=== PATIENT | female | born 1955 | race African-American/Black ===

== ENCOUNTER 2017-11-09 15:22 | Emergency (ER) | payer OTHER ==
[2017-11-09] MEDS ORDERED: Acetaminophen 500 MG TAB ONE (15:51)
--- NOTE | 2017-11-09 16:03 | RAD ---
CHEST PA AND LATERAL: HISTORY: A 62-year-old female with a history of a cough and congestion. COMPARISON: 02/15/2017 FINDINGS: Heart size is normal. Stable increased bronchovascular markings bilaterally. Mild thoracolumbar sco liotic changes. No confluent pneumonia, overt edema, or pleural effusion. IMPRESSION: 1. No acute intrathoracic disease. 2. Atherosclerosis of the aorta. POS: [facility]
== END 2017-11-09 16:50 | disposition home or self-care (01) ==
LOC: ERS 15:22
DX: J44.1 Chronic obstructive pulmonary disease with (acute) exacerbation (principal); J20.9 Acute bronchitis, unspecified; J44.0 Chronic obstructive pulmonary disease with (acute) lower respiratory infection; I11.0 Hypertensive heart disease with heart failure; I50.9 Heart failure, unspecified; F17.210 Nicotine dependence, cigarettes, uncomplicated; Z79.82 Long term (current) use of aspirin; Z79.899 Other long term (current) drug therapy
CPT/HCPCS: 71046; 93005

== ENCOUNTER 2018-06-28 03:43 | Emergency (ER) | payer MEDICARE, MEDICAID ==
[2018-06-28 04:34] LABS: #Basophils 0.1 thou/uL (0.0-0.2); #Eosinphils 0.1 thou/uL (0.0-0.7); #Lymphocytes 1.6 thou/uL (1.20-3.40); #Monocytes 0.3 thou/uL (0.11-0.59); #Neutrophils 4.5 thou/uL (1.40-6.50); %Basophils 1.1 % (0.0-1.0); %Lymphocytes 23.9 % (21.0-51.0); %Monocytes 4.9 % (0.0-10.0); %Neutrophils 69.1 % (42.0-75.0); Hemoglobin 14.8 g/dL (12.0-16.0); Mean Corpuscular HGB CONC 32.5 g/dL (32.0-36.0); Mean Corpuscular Hemoglobin 33.9 pg (27.0-31.0); Mean Platelet Volume 7.4 fL (7.4-10.4); Platelet Count 176 thou/uL (130-400); RBC Distribution Width 11.6 % (11.5-14.5); Red Blood Cell (RBC) Count 4.37 mill/uL (4.20-5.40); White Blood Cell (WBC) Count 6.5 thou/uL (4.8-10.8)
[2018-06-28 04:42] LABS: ALT (SGPT) 19 U/L (8-55); AST (SGOT) 16 U/L (5-34); Alkaline Phosphatase 158 U/L (40-150); Anion Gap 13 mmol/L (10-20); BUN (Urea Nitrogen) 10 mg/dL (9.8-20.1); Bilirubin, Total 1.1 mg/dL (0.2-1.2); Calc. Creatinine Clearance 0 mL/min (70-130); Calcium 9.8 mg/dL (7.8-10.44); Carbon Dioxide 26 mmol/L (23-31); Chloride 105 mmol/L (98-107); Estimated GFR-MDRD 85; Globulin 2.8 g/dL (2.4-3.5); Glucose 107 mg/dL (80-115); Lipase 51 U/L (8-78); Potassium 3.2 mmol/L (3.5-5.1); Protein, Total 6.8 g/dL (6.0-8.3); Sodium 141 mmol/L (136-145)
--- NOTE | 2018-06-28 08:34 | RAD ---
2 VIEWS CHEST: Date: 06/28/18 PROVIDED CLINICAL HISTORY: Chest pain. FINDINGS: Comparison with 11/09/17. Cardiac and mediastinal silhouette is within normal limits. Lungs appear clear. Stable minimal blunti ng of the posterior costophrenic angles. No evidence for pneumothorax or large effusion. Vascular douglas cification involves the aortic arch. IMPRESSION: Stable radiographic appearance of the chest. POS: [facility]
== END 2018-06-28 06:16 | disposition home or self-care (01) ==
LOC: ERS 03:43
DX: R07.2 Precordial pain (principal); J44.9 Chronic obstructive pulmonary disease, unspecified; F17.210 Nicotine dependence, cigarettes, uncomplicated; I25.2 Old myocardial infarction; I11.0 Hypertensive heart disease with heart failure; I50.9 Heart failure, unspecified
CPT/HCPCS: 36415; 71046; 80053; 83690; 84484; 85025; 93005

== ENCOUNTER 2018-12-07 13:37 | Outpatient (CLI) | payer MEDICARE, MEDICAID ==
--- NOTE | 2018-12-07 15:45 | MMO ---
Bilateral MAMMO Bilat Screen [facility]. CLINICAL HISTORY: Patient is 63 years old and is seen for screening. The patient has no family history of breast cancer. The patient has no personal history of cancer. VIEWS: The views performed were: bilateral craniocaudal with tomosynthesis and bilateral mediolateral oblique with tomosynthesis. FILMS COMPARED: The present examination has been compared to a prior imaging study performed at [facility] on 03/23/2008. MAMMOGRAM FINDINGS: There are scattered fibroglandular densities. There are no suspicious masses, suspicious calcifications, or new areas of architectural distortion. IMPRESSION: THERE IS NO MAMMOGRAPHIC EVIDENCE OF MALIGNANCY. A ROUTINE FOLLOW-UP MAMMOGRAM IN 1 YEAR IS RECOMMENDED. THE RESULTS OF THIS EXAM WERE SENT TO THE PATIENT. ACR BI-RADS Category 1 - Negative MAMMOGRAPHY NOTE: 1. A negative mammogram report should not delay a biopsy if a dominant of clinically suspicious mass is present. 2. Approximately 10% to 15% of breast cancers are not detected by mammography. 3. Adenosis and dense breasts may obscure an underlying neoplasm.
== END 2018-12-07 13:38 | disposition home or self-care (01) ==
LOC: BICMAMMO 13:37
PROVIDERS: ATTEND Clinical Nurse Specialist Medical-Surgical
DX: Z12.31 Encounter for screening mammogram for malignant neoplasm of breast (principal)
CPT/HCPCS: 77063; 77067

== ENCOUNTER 2020-10-25 13:35 | Inpatient (IN) | payer MEDICARE, OTHER ==
[2020-10-25 14:22] LABS: #Eosinphils 0.1 thou/uL (0.0-0.7); #Lymphocytes 1.2 thou/uL (1.20-3.40); #Monocytes 0.4 thou/uL (0.11-0.59); #Neutrophils 4.3 thou/uL (1.40-6.50); %Basophils 0.2 % (0.0-1.0); %Eosinophils 1.2 % (0.0-10.0); %Lymphocytes 19.3 % (21.0-51.0); %Monocytes 6.4 % (0.0-10.0); %Neutrophils 72.8 % (42.0-75.0); Hemoglobin 13.3 g/dL (12.0-16.0); Mean Corpuscular HGB CONC 31.8 g/dL (32.0-36.0); Mean Corpuscular Hemoglobin 33.7 pg (27.0-31.0); Mean Platelet Volume 7.1 fL (7.4-10.4); Platelet Count 160 thou/uL (130-400); RBC Distribution Width 11.4 % (11.5-14.5); Red Blood Cell (RBC) Count 3.96 mill/uL (4.20-5.40)
[2020-10-25 14:40] LABS: MDiff Complete? YES; Macrocytosis SLIGHT = 6-15 cells (100X) (0-5/hpf); Platelet Morphology Comment Appears Adequate
[2020-10-25 14:48] LABS: ALT (SGPT) 17 U/L (8-55); AST (SGOT) 14 U/L (5-34); Albumin 3.8 g/dL (3.4-4.8); Alkaline Phosphatase 129 U/L (40-110); Anion Gap 14 mmol/L (10-20); BUN (Urea Nitrogen) 9 mg/dL (9.8-20.1); Bilirubin, Total 1.1 mg/dL (0.2-1.2); Calc. Creatinine Clearance 0 mL/min (70-130); Carbon Dioxide 30 mmol/L (23-31); Chloride 102 mmol/L (98-107); Glucose 94 mg/dL (80-115); Potassium 3.7 mmol/L (3.5-5.1); Protein, Total 6.8 g/dL (5.8-8.1); Sodium 142 mmol/L (136-145)
[2020-10-25] MEDS ORDERED: Furosemide 40 MG/4 ML VIAL ONE (15:41)
[2020-10-25] MEDS ORDERED: Acetaminophen 325 MG TAB PO PRN (15:49)
[2020-10-25] MEDS ORDERED: Ondansetron PF 4 MG/2 ML Vial IVP PRN (15:49)
[2020-10-25 18:08] LABS: Troponin I Less than 0.010 ng/mL (< 0.028)
[2020-10-25] MEDS: Nicotine 21 MG PATCH TD SCH (18:31)
[2020-10-25 19:58] VITALS: BMI 22.5
[2020-10-25 20:33] LABS: Troponin I Less than 0.010 ng/mL (< 0.028)
[2020-10-25 20:38] LABS: SARS-CoV-2 PCR by NAA Not Detected (NotDetected)
[2020-10-26] MEDS: Furosemide 20 MG/2 ML VIAL SLOW IVP SCH ×2 (05:30→14:23)
[2020-10-26 05:55] LABS: #Basophils 0.1 thou/uL (0.0-0.2); #Eosinphils 0.1 thou/uL (0.0-0.7); #Lymphocytes 1.8 thou/uL (1.20-3.40); #Monocytes 0.5 thou/uL (0.11-0.59); #Neutrophils 3.7 thou/uL (1.40-6.50); %Basophils 1.2 % (0.0-1.0); %Eosinophils 1.2 % (0.0-10.0); %Lymphocytes 29.3 % (21.0-51.0); %Neutrophils 60.3 % (42.0-75.0); Hemoglobin 12.8 g/dL (12.0-16.0); Mean Corpuscular HGB CONC 31.8 g/dL (32.0-36.0); Mean Corpuscular Hemoglobin 33.1 pg (27.0-31.0); Mean Platelet Volume 7.4 fL (7.4-10.4); Platelet Count 161 thou/uL (130-400); RBC Distribution Width 11.5 % (11.5-14.5); Red Blood Cell (RBC) Count 3.87 mill/uL (4.20-5.40); White Blood Cell (WBC) Count 6.2 thou/uL (4.8-10.8)
[2020-10-26 06:15] LABS: Anion Gap 12 mmol/L (10-20); BUN (Urea Nitrogen) 10 mg/dL (9.8-20.1); Calc. Creatinine Clearance 79 mL/min (70-130); Calcium 9.6 mg/dL (7.8-10.44); Carbon Dioxide 30 mmol/L (23-31); Chloride 101 mmol/L (98-107); Glucose 96 mg/dL (80-115); Potassium 3.1 mmol/L (3.5-5.1); Sodium 140 mmol/L (136-145)
[2020-10-26] MEDS: Enoxaparin Sodium 40 MG/0.4 ML SYRINGE SC SCH (07:52)
[2020-10-26] MEDS ORDERED: Potassium Chloride 20 MEQ TAB PO SCH (10:00)
[2020-10-26] MEDS ORDERED: Lisinopril 20 MG TAB PO SCH (10:00)
[2020-10-26] MEDS ORDERED: FLUoxetine HCl 20 MG CAP PO SCH (10:00)
[2020-10-26] MEDS ORDERED: Aspirin 325 MG TAB PO SCH (10:00)
[2020-10-26] MEDS: Nicotine 21 MG PATCH TD SCH (16:02)
[2020-10-26] MEDS ORDERED: predniSONE 20 MG TAB PO SCH (16:45)
[2020-10-26] MEDS: Mometasone 200 MCG/Formoterol 5 MCG 120 PUFF INHALER INH SCH (18:05)
[2020-10-26] MEDS ORDERED: Atorvastatin Calcium 10 MG TAB PO SCH (21:00)
[2020-10-26] MEDS ORDERED: Melatonin 3 MG TAB PO SCH (21:45)
[2020-10-27] MEDS: Furosemide 20 MG/2 ML VIAL SLOW IVP SCH ×2 (05:48→14:52)
[2020-10-27] MEDS: Mometasone 200 MCG/Formoterol 5 MCG 120 PUFF INHALER INH SCH ×2 (06:50→19:40)
[2020-10-27] MEDS ORDERED: predniSONE 20 MG TAB PO SCH ×2 (08:00)
[2020-10-27] MEDS: Potassium Chloride 20 MEQ TAB PO SCH (08:10)
[2020-10-27] MEDS: Enoxaparin Sodium 40 MG/0.4 ML SYRINGE SC SCH (08:10)
[2020-10-27] MEDS: FLUoxetine HCl 20 MG CAP PO SCH (08:10)
[2020-10-27] MEDS ORDERED: Potassium Chloride 20 MEQ TAB PO SCH ×2 (08:45→18:00)
[2020-10-27] MEDS ORDERED: Lisinopril 20 MG TAB PO SCH (09:00)
[2020-10-27] MEDS ORDERED: Aspirin 325 MG TAB PO SCH (09:00)
[2020-10-27] MEDS ORDERED: Electrolyte Replacement Protocol FS PRN (11:15)
[2020-10-27] MEDS ORDERED: Regadenoson 0.4 MG/5 ML SYRINGE ONE (12:24)
[2020-10-27] MEDS: Lisinopril 20 MG TAB PO SCH (14:51)
[2020-10-27] MEDS: Nicotine 21 MG PATCH TD SCH (19:20)
[2020-10-27] MEDS ORDERED: Atorvastatin Calcium 20 MG TAB PO SCH (21:00)
[2020-10-28] MEDS ORDERED: Magnesium 2 GM/50 ML 2 GM in Premix Bag 1 BAG IVPB SCH ×2 (06:00→07:30)
[2020-10-28 06:33] LABS: Anion Gap 13 mmol/L (10-20); BUN (Urea Nitrogen) 17 mg/dL (9.8-20.1); Calc. Creatinine Clearance 79 mL/min (70-130); Calcium 9.8 mg/dL (7.8-10.44); Carbon Dioxide 26 mmol/L (23-31); Cardiac Risk 4.2 (Less than 4.5); Chloride 102 mmol/L (98-107); Cholesterol 192 mg/dl (< 200 Desired); Glucose 98 mg/dL (80-115); HDL Cholesterol 46 mg/dL (>60 Neg Risk); LDL Cholesterol, Calculated 129 mg/dL; Magnesium 1.7 mg/dL (1.6-2.6); Sodium 137 mmol/L (136-145); Triglycerides 86 mg/dL (Less than 150)
[2020-10-28] MEDS: Mometasone 200 MCG/Formoterol 5 MCG 120 PUFF INHALER INH SCH (06:52)
[2020-10-28 07:18] LABS: #Eosinphils 0.1 thou/uL (0.0-0.7); #Lymphocytes 1.6 thou/uL (1.20-3.40); #Monocytes 0.5 thou/uL (0.11-0.59); #Neutrophils 2.8 thou/uL (1.40-6.50); %Basophils 0.4 % (0.0-1.0); %Eosinophils 1.3 % (0.0-10.0); %Monocytes 9.7 % (0.0-10.0); %Neutrophils 56.6 % (42.0-75.0); Hemoglobin 13.6 g/dL (12.0-16.0); MDiff Complete? YES; Macrocytosis SLIGHT = 6-15 cells (100X) (0-5/hpf); Mean Corpuscular HGB CONC 32.6 g/dL (32.0-36.0); Mean Corpuscular Hemoglobin 34.2 pg (27.0-31.0); Mean Platelet Volume 7.4 fL (7.4-10.4); Platelet Count 166 thou/uL (130-400); RBC Distribution Width 11.3 % (11.5-14.5); Red Blood Cell (RBC) Count 3.99 mill/uL (4.20-5.40); White Blood Cell (WBC) Count 4.9 thou/uL (4.8-10.8)
[2020-10-28] MEDS: Enoxaparin Sodium 40 MG/0.4 ML SYRINGE SC SCH (08:16)
[2020-10-28] MEDS: Furosemide 20 MG TAB PO SCH ×2 (08:16→13:43)
[2020-10-28] MEDS: FLUoxetine HCl 20 MG CAP PO SCH (08:16)
[2020-10-28] MEDS: Lisinopril 20 MG TAB PO SCH (08:16)
[2020-10-28] MEDS: Potassium Chloride 20 MEQ TAB PO SCH (08:16)
[2020-10-28] MEDS ORDERED: Aspirin Chewable 81 MG TAB PO SCH (09:00)
[2020-10-28 13:16] VITALS: BP 114/60; TEMP 99
== END 2020-10-28 14:49 | disposition home or self-care (01) | DRG 291 ==
LOC: ERS 13:35 → ERHOLD 15:18 → 2SW 18:50 → OBSVTOIN 10-26 16:16
PROVIDERS: ADMIT Internal Medicine; ATTEND Internal Medicine
DX: I11.0 Hypertensive heart disease with heart failure (principal); J96.01 Acute respiratory failure with hypoxia; J44.9 Chronic obstructive pulmonary disease, unspecified; E78.5 Hyperlipidemia, unspecified; I25.10 Atherosclerotic heart disease of native coronary artery without angina pectoris; F17.210 Nicotine dependence, cigarettes, uncomplicated; Z20.822 Contact with and (suspected) exposure to COVID-19; I50.33 Acute on chronic diastolic (congestive) heart failure; Z88.0 Allergy status to penicillin; Z79.82 Long term (current) use of aspirin; I25.2 Old myocardial infarction; Z90.49 Acquired absence of other specified parts of digestive tract; Z95.5 Presence of coronary angioplasty implant and graft; Z90.710 Acquired absence of both cervix and uterus; Z88.8 Allergy status to other drugs, medicaments and biological substances
CPT/HCPCS: 36415; 36416; 71045; 78452; 80048; 80053; 80061; 83735; 83880; 84484; 85025; 93005; 93017; 93306; 93798; 94640; 96372; 96374; 96376; A9500; G0378; J1650; J1940; J2785; J3475; J7620; U0003; U0005

== ENCOUNTER 2022-01-17 23:52 | Inpatient (IN) | payer OTHER ==
[2022-01-18 00:32] LABS: Mean Corpuscular HGB CONC 33.1 g/dL (32.0-36.0); Mean Corpuscular Hemoglobin 35.1 pg (27.0-31.0); Mean Platelet Volume 6.4 fL (7.4-10.4); Platelet Count 166 thou/uL (130-400); RBC Distribution Width 11.2 % (11.5-14.5); White Blood Cell (WBC) Count 4.9 thou/uL (4.8-10.8)
[2022-01-18] MEDS ORDERED: niCARdipine 25 MG/10 ML VIAL ONE (00:32)
[2022-01-18 00:44] LABS: #Eosinphils 0.1 thou/uL (0.0-0.7); #Monocytes 0.3 thou/uL (0.11-0.59); #Neutrophils 2.4 thou/uL (1.40-6.50); %Basophils 0.5 % (0.0-1.0); %Eosinophils 2.1 % (0.0-10.0); %Lymphocytes 40.8 % (21.0-51.0); %Monocytes 6.6 % (0.0-10.0); %Neutrophils 50.1 % (42.0-75.0)
[2022-01-18 00:55] LABS: ALT (SGPT) 16 U/L (8-55); AST (SGOT) 20 U/L (5-34); Albumin 3.8 g/dL (3.4-4.8); Alkaline Phosphatase 99 U/L (40-110); Anion Gap 13 mmol/L (10-20); BUN (Urea Nitrogen) 9 mg/dL (9.8-20.1); Bilirubin, Total 0.9 mg/dL (0.2-1.2); Calc. Creatinine Clearance 0 mL/min (70-130); Calcium 9.3 mg/dL (7.8-10.44); Carbon Dioxide 28 mmol/L (23-31); Chloride 100 mmol/L (98-107); Estimated GFR 77; Globulin 2.3 g/dL (2.4-3.5); Glucose 99 mg/dL (80-115); Potassium 3.2 mmol/L (3.5-5.1); Protein, Total 6.1 g/dL (5.8-8.1); Sodium 138 mmol/L (136-145)
[2022-01-18] MEDS ORDERED: Ondansetron PF 4 MG/2 ML Vial IVP PRN (02:04)
[2022-01-18] MEDS ORDERED: Guaifenesin DM 100-10/5 ML UDCUP PO PRN (02:04)
[2022-01-18] MEDS ORDERED: Nitroglycerin 0.4 MG TAB (25 Tab Bottle) SL PRN (02:04)
[2022-01-18] MEDS ORDERED: Senokot S 8.6-50 MG TAB PO PRN (02:04)
[2022-01-18] MEDS ORDERED: Bisacodyl 5 MG TAB PO PRN (02:04)
[2022-01-18] MEDS ORDERED: Acetaminophen 325 MG TAB PO PRN (02:04)
[2022-01-18] MEDS ORDERED: Melatonin 3 MG TAB PO PRN (02:09)
[2022-01-18] MEDS ORDERED: Potassium Chloride 20 MEQ TAB PO SCH (02:30)
[2022-01-18] MEDS ORDERED: Aspirin Chewable 81 MG TAB PO SCH (02:30)
[2022-01-18] MEDS: Nicotine 21 MG PATCH TD SCH (02:59)
[2022-01-18 03:36] VITALS: BMI 23.6
[2022-01-18] MEDS ORDERED: Enoxaparin Sodium 40 MG/0.4 ML SYRINGE SC SCH (04:00)
[2022-01-18 04:41] LABS: #Eosinphils 0.1 thou/uL (0.0-0.7); #Lymphocytes 2.1 thou/uL (1.20-3.40); #Monocytes 0.4 thou/uL (0.11-0.59); #Neutrophils 2.5 thou/uL (1.40-6.50); %Basophils 0.9 % (0.0-1.0); %Eosinophils 2.3 % (0.0-10.0); %Lymphocytes 40.8 % (21.0-51.0); %Monocytes 7.2 % (0.0-10.0); %Neutrophils 48.8 % (42.0-75.0); Hemoglobin 12.1 g/dL (12.0-16.0); Mean Corpuscular HGB CONC 32.3 g/dL (32.0-36.0); Mean Corpuscular Hemoglobin 34.4 pg (27.0-31.0); Mean Platelet Volume 6.5 fL (7.4-10.4); Platelet Count 158 thou/uL (130-400); RBC Distribution Width 11.2 % (11.5-14.5); Red Blood Cell (RBC) Count 3.52 mill/uL (4.20-5.40); White Blood Cell (WBC) Count 5.1 thou/uL (4.8-10.8)
[2022-01-18 05:26] LABS: ALT (SGPT) 14 U/L (8-55); AST (SGOT) 18 U/L (5-34); Albumin 3.5 g/dL (3.4-4.8); Alkaline Phosphatase 91 U/L (40-110); Anion Gap 10 mmol/L (10-20); BUN (Urea Nitrogen) 9 mg/dL (9.8-20.1); Calc. Creatinine Clearance 61 mL/min (70-130); Calcium 9.3 mg/dL (7.8-10.44); Carbon Dioxide 31 mmol/L (23-31); Cardiac Risk 3.1 (Less than 4.5); Chloride 100 mmol/L (98-107); Cholesterol 152 mg/dl (< 200 Desired); Estimated GFR 78; Globulin 2.4 g/dL (2.4-3.5); Glucose 110 mg/dL (80-115); HDL Cholesterol 49 mg/dL (>60 Neg Risk); LDL Cholesterol, Calculated 91 mg/dL; Potassium 3.6 mmol/L (3.5-5.1); Protein, Total 5.9 g/dL (5.8-8.1); Sodium 137 mmol/L (136-145); Triglycerides 62 mg/dL (Less than 150)
[2022-01-18 05:29] LABS: Troponin I 0.014 ng/mL (< 0.028)
[2022-01-18 06:44] LABS: Troponin I 0.013 ng/mL (< 0.028)
[2022-01-18] MEDS: Albuterol 200 PUFF (6.7GM INHALER) INH PRN (06:53)
[2022-01-18] MEDS: Aspirin Chewable 81 MG TAB PO SCH (09:15)
[2022-01-18] MEDS: Lisinopril 20 MG TAB PO SCH (09:15)
[2022-01-18] MEDS: Pantoprazole 40 MG VIAL IVP SCH (09:16)
[2022-01-18] MEDS ORDERED: Nicotine 14 MG PATCH TOP SCH (17:00)
[2022-01-18] MEDS: Atorvastatin Calcium 20 MG TAB PO SCH (20:53)
[2022-01-19] MEDS: Albuterol 200 PUFF (6.7GM INHALER) INH PRN (01:36)
[2022-01-19] MEDS ORDERED: methylPREDNISolone Sod Succ/PF 125 MG/2 ML VIAL IVP SCH (02:15)
[2022-01-19] MEDS: Nicotine 21 MG PATCH TD SCH (02:55)
[2022-01-19] MEDS: Lisinopril 20 MG TAB PO SCH (09:10)
[2022-01-19] MEDS: Folic Acid 1 MG TAB PO SCH (09:10)
[2022-01-19] MEDS: Aspirin Chewable 81 MG TAB PO SCH (09:10)
[2022-01-19] MEDS: Pantoprazole 40 MG VIAL IVP SCH (09:11)
[2022-01-19] MEDS: Enoxaparin Sodium 40 MG/0.4 ML SYRINGE SC SCH (09:11)
[2022-01-19] MEDS: Atorvastatin Calcium 20 MG TAB PO SCH (20:36)
[2022-01-20] MEDS: Nicotine 21 MG PATCH TD SCH (03:38)
[2022-01-20] MEDS: Aspirin Chewable 81 MG TAB PO SCH (09:52)
[2022-01-20] MEDS: Enoxaparin Sodium 40 MG/0.4 ML SYRINGE SC SCH (09:52)
[2022-01-20] MEDS: Folic Acid 1 MG TAB PO SCH (09:52)
[2022-01-20] MEDS: Lisinopril 20 MG TAB PO SCH (09:53)
[2022-01-20] MEDS: Atorvastatin Calcium 20 MG TAB PO SCH (21:41)
[2022-01-21] MEDS: Nicotine 21 MG PATCH TD SCH (02:45)
[2022-01-21] MEDS: Lisinopril 20 MG TAB PO SCH (03:46)
[2022-01-21] MEDS: Folic Acid 1 MG TAB PO SCH (03:46)
[2022-01-21] MEDS: Aspirin Chewable 81 MG TAB PO SCH (03:46)
[2022-01-21] MEDS: Enoxaparin Sodium 40 MG/0.4 ML SYRINGE SC SCH (03:47)
[2022-01-21] MEDS: Albuterol 200 PUFF (6.7GM INHALER) INH PRN (04:16)
[2022-01-21] MEDS ORDERED: Communication Order-Pharmacy FS SCH (06:00)
[2022-01-21] MEDS ORDERED: Sodium Chloride 0.9% 1,000 ML IV SCH (06:00)
[2022-01-21] MEDS ORDERED: Lidocaine 1% PF 5 ML VIAL ONE (06:45)
[2022-01-21] MEDS ORDERED: Midazolam HCl 2 mg/2 ml Vial ONE (08:08)
[2022-01-21] MEDS ORDERED: Fentanyl 100 MCG/2 ML VIAL ONE ×2 (08:08→13:08)
[2022-01-21] MEDS ORDERED: Heparin 10,000 UNITS/ 10 ML VIAL ONE ×2 (08:33→08:59)
[2022-01-21] MEDS ORDERED: Iopamidol 370 76% 100 ML VIAL ONE (08:35)
[2022-01-21] MEDS ORDERED: Nitroglycerin 100MG/250ML BOT 250 ML ONE (09:04)
[2022-01-21] MEDS ORDERED: Atropine Sulfate 1 mg/10 ml Syringe ONE (09:09)
[2022-01-21] MEDS ORDERED: Clopidogrel Bisulfate 300 MG TAB ONE (09:51)
[2022-01-21] MEDS ORDERED: Clopidogrel Bisulfate 300 MG TAB PO SCH (10:15)
[2022-01-21] MEDS: Sodium Chloride 0.9% 1,000 ML IV SCH ×3 (11:19→22:09)
[2022-01-21] MEDS ORDERED: Acetaminophen 325 MG TAB ONE (12:23)
[2022-01-21] MEDS ORDERED: Fentanyl 100 MCG/2 ML VIAL SLOW IVP PRN ×2 (13:18→15:16)
[2022-01-21] MEDS: Atorvastatin Calcium 20 MG TAB PO SCH (22:09)
[2022-01-22] MEDS: Nicotine 21 MG PATCH TD SCH (02:00)
[2022-01-22 04:42] LABS: #Eosinphils 0.1 thou/uL (0.0-0.7); #Lymphocytes 1.8 thou/uL (1.20-3.40); #Monocytes 0.4 thou/uL (0.11-0.59); #Neutrophils 2.7 thou/uL (1.40-6.50); %Basophils 0.3 % (0.0-1.0); %Eosinophils 2.6 % (0.0-10.0); %Lymphocytes 35.2 % (21.0-51.0); %Monocytes 7.9 % (0.0-10.0); %Neutrophils 53.9 % (42.0-75.0); Hemoglobin 11.8 g/dL (12.0-16.0); Mean Corpuscular Hemoglobin 35.2 pg (27.0-31.0); Mean Platelet Volume 7.4 fL (7.4-10.4); Platelet Count 149 thou/uL (130-400); RBC Distribution Width 11.1 % (11.5-14.5); Red Blood Cell (RBC) Count 3.36 mill/uL (4.20-5.40)
[2022-01-22 05:04] LABS: ALT (SGPT) 15 U/L (8-55); AST (SGOT) 16 U/L (5-34); Alkaline Phosphatase 85 U/L (40-110); Anion Gap 9 mmol/L (10-20); BUN (Urea Nitrogen) 11 mg/dL (9.8-20.1); Bilirubin, Total 0.5 mg/dL (0.2-1.2); Calc. Creatinine Clearance 74 mL/min (70-130); Calcium 8.7 mg/dL (7.8-10.44); Carbon Dioxide 26 mmol/L (23-31); Chloride 109 mmol/L (98-107); Estimated GFR 93; Globulin 2.1 g/dL (2.4-3.5); Glucose 103 mg/dL (80-115); Potassium 3.3 mmol/L (3.5-5.1); Protein, Total 5.1 g/dL (5.8-8.1); Sodium 141 mmol/L (136-145)
[2022-01-22] MEDS: Sodium Chloride 0.9% 1,000 ML IV SCH (06:00)
[2022-01-22] MEDS ORDERED: Potassium Chloride 20 MEQ TAB PO SCH ×3 (07:15→14:45)
[2022-01-22] MEDS ORDERED: Furosemide 40 MG/4 ML VIAL SLOW IVP SCH ×2 (08:25→08:30)
[2022-01-22] MEDS ORDERED: Spironolactone 25 MG TAB PO SCH (08:30)
[2022-01-22] MEDS: Aspirin Chewable 81 MG TAB PO SCH (08:47)
[2022-01-22] MEDS: Lisinopril 20 MG TAB PO SCH (08:48)
[2022-01-22] MEDS: Folic Acid 1 MG TAB PO SCH (08:48)
[2022-01-22] MEDS ORDERED: Clopidogrel Bisulfate 75 MG TAB PO SCH (09:00)
[2022-01-22 12:06] VITALS: TEMP 98.3
[2022-01-22 13:41] VITALS: BP 120/60
[2022-01-22 13:45] LABS: Anion Gap 16 mmol/L (10-20); BUN (Urea Nitrogen) 8 mg/dL (9.8-20.1); Calc. Creatinine Clearance 65 mL/min (70-130); Calcium 9.9 mg/dL (7.8-10.44); Carbon Dioxide 25 mmol/L (23-31); Chloride 105 mmol/L (98-107); Estimated GFR 79; Glucose 98 mg/dL (80-115); Potassium 3.8 mmol/L (3.5-5.1); Sodium 142 mmol/L (136-145)
== END 2022-01-22 16:30 | disposition home or self-care (01) | DRG 247 ==
LOC: ERS 23:52 → 2SW 01-18 01:31 → OBSVTOIN 01-18 17:32
PROVIDERS: ADMIT Internal Medicine; ATTEND Internal Medicine
PROC: 027036Z Dilation of Coronary Artery, One Artery with Three Drug-eluting Intraluminal Devices, Percutaneous Approach (ICD-10-PCS; principal; 2022-01-21)
PROC: 4A023N7 Measurement of Cardiac Sampling and Pressure, Left Heart, Percutaneous Approach (ICD-10-PCS; 2022-01-21)
PROC: B2151ZZ Fluoroscopy of Left Heart using Low Osmolar Contrast (ICD-10-PCS; 2022-01-21)
PROC: B2111ZZ Fluoroscopy of Multiple Coronary Arteries using Low Osmolar Contrast (ICD-10-PCS; 2022-01-21)
DX: I25.110 Atherosclerotic heart disease of native coronary artery with unstable angina pectoris (principal); I50.22 Chronic systolic (congestive) heart failure; Z20.822 Contact with and (suspected) exposure to COVID-19; I11.0 Hypertensive heart disease with heart failure; J44.9 Chronic obstructive pulmonary disease, unspecified; E78.5 Hyperlipidemia, unspecified; F17.210 Nicotine dependence, cigarettes, uncomplicated; E87.6 Hypokalemia; E78.00 Pure hypercholesterolemia, unspecified; I25.2 Old myocardial infarction; Z95.5 Presence of coronary angioplasty implant and graft; Z90.49 Acquired absence of other specified parts of digestive tract; Z88.0 Allergy status to penicillin; Z79.899 Other long term (current) drug therapy; Z88.8 Allergy status to other drugs, medicaments and biological substances
CPT/HCPCS: 36415; 71045; 80053; 80061; 82607; 84484; 85025; 85347; 92928; 93005; 93010; 93306; 93458; 93798; 94760; 96372; 96374; 99152; 99153; C1725; C1769; C1874; C1894; C9113; C9600; G0378; J0461; J1644; J1650; J1940; J2250; J2930; J3010; J7050; Q9967; U0003; U0005

== ENCOUNTER 2023-01-10 12:52 | Observation (INO) | payer OTHER ==
[2023-01-10 13:39] LABS: #Monocytes 0.3 thou/uL (0.11-0.59); #Neutrophils 7.5 thou/uL (1.40-6.50); %Basophils 0.2 % (0.0-1.0); %Eosinophils 0.2 % (0.0-10.0); %Lymphocytes 10.3 % (21.0-51.0); %Monocytes 3.4 % (0.0-10.0); %Neutrophils 85.6 % (42.0-75.0); Hematocrit 38.6 % (36.0-47.0); Hemoglobin 12.9 g/dL (12.0-16.0); Mean Corpuscular HGB CONC 33.4 g/dL (32.0-36.0); Mean Corpuscular Hemoglobin 33.6 pg (27.0-31.0); Mean Corpuscular Volume 100.5 fl (78.0-98.0); Mean Platelet Volume 9.1 fL (7.4-10.4); Platelet Count 183 10x3/uL (130-400); RBC Distribution Width 12.5 % (11.5-14.5); Red Blood Cell (RBC) Count 3.84 mill/uL (4.20-5.40); White Blood Cell (WBC) Count 8.7 10x3/uL (4.8-10.8)
[2023-01-10 13:47] LABS: Actual Bicarbonate (HCO3v) 29.3 mEq/L (22-28); Base Excess 5.4 mEq/L (-2.0 to +3.0); Calcium, Ionized (venous) 1.13 mmol/L (1.16-1.32); Chloride (VBG) 102 mmol/L (98-106); Hematocrit-VBG 41 % (36.0-47.0); Sodium 138.6 mmol/L (133-146); pH (venous) 7.479 (7.32-7.43)
[2023-01-10] MEDS ORDERED: LevoFLOXacin 750 mg/D5W 150 ml Premix Bag ONE (13:49)
[2023-01-10] MEDS ORDERED: Magnesium 2 GM/50 ML BAG (IN WATER) ONE (13:49)
[2023-01-10] MEDS ORDERED: Aspirin Chewable 81 MG TAB ONE (13:49)
[2023-01-10 13:50] LABS: Potassium (VBG) 2.62 mmol/L (3.70-5.30)
[2023-01-10 13:55] LABS: ALT (SGPT) 11 U/L (8-55); AST (SGOT) 13 U/L (5-34); Albumin 3.8 g/dL (3.4-4.8); Alkaline Phosphatase 107 U/L (40-110); Anion Gap 13 mmol/L (10-20); BUN (Urea Nitrogen) 6 mg/dL (9.8-20.1); Bilirubin, Total 0.9 mg/dL (0.2-1.2); Calc. Creatinine Clearance 0 mL/min (70-130); Calcium 9.7 mg/dL (7.8-10.44); Carbon Dioxide 27 mmol/L (23-31); Chloride 103 mmol/L (98-107); Estimated GFR 94; Glucose 121 mg/dL (80-115); Protein, Total 6.8 g/dL (5.8-8.1); Sodium 140 mmol/L (136-145)
[2023-01-10 13:59] LABS: Potassium 2.6 mmol/L (3.5-5.1)
[2023-01-10] MEDS ORDERED: Albuterol 2.5 MG/0.5 ML NEB ONE (14:15)
[2023-01-10] MEDS ORDERED: Potassium Chloride 20 MEQ/100 ML PREMIX BAG ONE (14:22)
[2023-01-10 14:30] LABS: Magnesium 1.6 mg/dL (1.6-2.6)
[2023-01-10 20:02] VITALS: BMI 24.3
[2023-01-10 20:32] LABS: Troponin I 0.032 ng/mL (< 0.028)
[2023-01-10] MEDS: Potassium Chloride 20 MEQ TAB PO SCH (21:03)
[2023-01-10] MEDS ORDERED: HYDROcodone/Acetaminophen 5/325 mg Tablet PO PRN ×2 (21:49)
[2023-01-10] MEDS ORDERED: Ipratropium/Albuterol 3 ML NEB NEB PRN (21:49)
[2023-01-10] MEDS ORDERED: Acetaminophen 325 MG TAB PO PRN (21:49)
[2023-01-10] MEDS ORDERED: Ipratropium/Albuterol 3 ML NEB NEB SCH (22:00)
[2023-01-10] MEDS ORDERED: methylPREDNISolone Sod Succ 40 MG VIAL IVP SCH ×3 (22:00→23:59)
[2023-01-10] MEDS: Nicotine 21 MG PATCH TD SCH (22:15)
[2023-01-10] MEDS ORDERED: Magnesium 2 GM/50 ML(in water) 2 GM in Premix Bag 1 BAG IVPB SCH (23:59)
[2023-01-11 00:30] LABS: #Monocytes 0.1 thou/uL (0.11-0.59); #Neutrophils 5.6 thou/uL (1.40-6.50); %Lymphocytes 6.5 % (21.0-51.0); %Monocytes 1.1 % (0.0-10.0); %Neutrophils 92.1 % (42.0-75.0); Hematocrit 37.8 % (36.0-47.0); Hemoglobin 12.3 g/dL (12.0-16.0); Mean Corpuscular HGB CONC 32.5 g/dL (32.0-36.0); Mean Corpuscular Hemoglobin 34.1 pg (27.0-31.0); Mean Platelet Volume 9.2 fL (7.4-10.4); Platelet Count 174 10x3/uL (130-400); RBC Distribution Width 12.7 % (11.5-14.5); Red Blood Cell (RBC) Count 3.61 mill/uL (4.20-5.40); White Blood Cell (WBC) Count 6.1 10x3/uL (4.8-10.8)
[2023-01-11 00:34] LABS: Mean Corpuscular Volume 104.7 fl (78.0-98.0)
[2023-01-11 00:56] LABS: Anion Gap 14 mmol/L (10-20); BUN (Urea Nitrogen) 10 mg/dL (9.8-20.1); Calc. Creatinine Clearance 54 mL/min (70-130); Calcium 9.5 mg/dL (7.8-10.44); Carbon Dioxide 25 mmol/L (23-31); Chloride 105 mmol/L (98-107); Estimated GFR 67; Glucose 154 mg/dL (80-115); Potassium 3.8 mmol/L (3.5-5.1); Sodium 140 mmol/L (136-145)
[2023-01-11] MEDS: Ipratropium/Albuterol 3 ML NEB NEB SCH ×4 (01:31→19:03)
[2023-01-11] MEDS: Potassium Chloride 20 MEQ TAB PO SCH (01:33)
[2023-01-11] MEDS ORDERED: methylPREDNISolone Sod Succ 40 MG VIAL IVP SCH (06:00)
[2023-01-11] MEDS ORDERED: LevoFLOXacin 750 mg/D5W 750 MG in Premix Bag 1 BAG IVPB SCH (20:00)
[2023-01-11] MEDS: Nicotine 21 MG PATCH TD SCH (20:09)
[2023-01-11] MEDS ORDERED: Atorvastatin Calcium 40 MG TAB PO SCH (21:00)
[2023-01-12] MEDS: Ipratropium/Albuterol 3 ML NEB NEB SCH ×3 (01:58→13:02)
[2023-01-12] MEDS ORDERED: Aspirin 81 mg Enteric Coated Tablet PO SCH (09:00)
[2023-01-12] MEDS ORDERED: Clopidogrel Bisulfate 75 MG TAB PO SCH (09:00)
[2023-01-12] MEDS ORDERED: Furosemide 20 MG TAB PO SCH (09:00)
[2023-01-12] MEDS ORDERED: Ezetimibe 10 MG TAB PO SCH (09:00)
[2023-01-12] MEDS ORDERED: Lisinopril/Hydrochlorothiazide 20/25 mg Tablet PO SCH (09:00)
[2023-01-12 15:59] VITALS: BP 131/82; TEMP 97.9
[2023-01-13] MEDS ORDERED: LevoFLOXacin 750 mg/D5W 750 MG in Premix Bag 1 BAG IVPB SCH (20:00)
== END 2023-01-12 16:30 | disposition home or self-care (01) ==
LOC: ERS 12:52 → 2NO 15:19
PROVIDERS: ADMIT Internal Medicine; ATTEND Internal Medicine
DX: J96.01 Acute respiratory failure with hypoxia (principal); J44.1 Chronic obstructive pulmonary disease with (acute) exacerbation; F17.210 Nicotine dependence, cigarettes, uncomplicated; E78.5 Hyperlipidemia, unspecified; I25.10 Atherosclerotic heart disease of native coronary artery without angina pectoris; I11.0 Hypertensive heart disease with heart failure; I50.9 Heart failure, unspecified; I25.2 Old myocardial infarction; E87.6 Hypokalemia; Z79.82 Long term (current) use of aspirin; Z79.02 Long term (current) use of antithrombotics/antiplatelets; Z79.899 Other long term (current) drug therapy; Z90.710 Acquired absence of both cervix and uterus; Z88.8 Allergy status to other drugs, medicaments and biological substances; Z88.0 Allergy status to penicillin; Z90.49 Acquired absence of other specified parts of digestive tract
CPT/HCPCS: 71045; 80048; 80053; 82805; 83605; 83735 ×2; 83880; 84484 ×2; 85025 ×2; 93005; 94640 ×3; 96365; 96366; 96367; 96372 ×2; 96375; 96376; 97116; 99285; G0378 ×4; 36415; J1650; J1956; J3475; J3480; J7611; J7620

== ENCOUNTER 2023-11-25 16:58 | Emergency (ER) | payer OTHER ==
[2023-11-25] MEDS ORDERED: Ipratropium/Albuterol 3 ML NEB ONE (18:42)
[2023-11-25] MEDS ORDERED: Magnesium 2 GM/50 ML BAG (IN WATER) ONE (19:47)
[2023-11-25 20:22] LABS: #Basophils Less than 0.03 10x3/uL (0.0-0.2); %Basophils 0.5 % (0.0-1.0); %Eosinophils 6.1 % (0.0-10.0); %Lymphocytes 28.1 % (21.0-51.0); %Monocytes 6.3 % (0.0-10.0); %Neutrophils 58.3 % (42.0-75.0); Hematocrit 35.6 % (36.0-47.0); Hemoglobin 11.7 g/dL (12.0-16.0); Mean Corpuscular HGB CONC 32.9 g/dL (32.0-36.0); Mean Corpuscular Hemoglobin 33.5 pg (27.0-31.0); Platelet Count 182 10x3/uL (130-400); RBC Distribution Width 12.2 % (11.5-14.5); Red Blood Cell (RBC) Count 3.49 mill/uL (4.20-5.40)
[2023-11-25 20:40] LABS: ALT (SGPT) 23 U/L (8-55); AST (SGOT) 24 U/L (5-34); Albumin 3.6 g/dL (3.4-4.8); Alkaline Phosphatase 118 U/L (40-110); Anion Gap 14 mmol/L (10-20); BUN (Urea Nitrogen) 11 mg/dL (9.8-20.1); Bilirubin, Total 0.5 mg/dL (0.2-1.2); Calc. Creatinine Clearance 0 mL/min (70-130); Calcium 9.7 mg/dL (7.8-10.44); Carbon Dioxide 23 mmol/L (23-31); Chloride 105 mmol/L (98-107); Estimated GFR 73; Glucose 132 mg/dL (80-115); Potassium 3.7 mmol/L (3.5-5.1); Protein, Total 6.6 g/dL (5.8-8.1); Sodium 138 mmol/L (136-145)
[2023-11-25 20:43] LABS: Troponin I 0.012 ng/mL (< 0.028)
== END 2023-11-25 21:57 | disposition home or self-care (01) ==
LOC: ERS 16:58
DX: J44.1 Chronic obstructive pulmonary disease with (acute) exacerbation (principal); I11.0 Hypertensive heart disease with heart failure; I50.9 Heart failure, unspecified; Z79.82 Long term (current) use of aspirin; Z87.891 Personal history of nicotine dependence; Z79.899 Other long term (current) drug therapy
CPT/HCPCS: 71045; 80053; 83880; 84484; 85025; 93005; 94640; 96374; 99285; J3475; J7620

== ENCOUNTER 2024-04-13 03:13 | Emergency (ER) | payer OTHER ==
[2024-04-13] MEDS ORDERED: Ipratropium/Albuterol 3 ML NEB ONE (03:36)
[2024-04-13 05:00] LABS: #Basophils Less than 0.03 10x3/uL (0.0-0.2); %Basophils 0.3 % (0.0-1.0); %Eosinophils 1.2 % (0.0-10.0); %Lymphocytes 15.7 % (21.0-51.0); %Monocytes 2.6 % (0.0-10.0); %Neutrophils 79.7 % (42.0-75.0); Hematocrit 36.2 % (36.0-47.0); Hemoglobin 12.1 g/dL (12.0-16.0); Mean Corpuscular HGB CONC 33.4 g/dL (32.0-36.0); Mean Corpuscular Hemoglobin 33.2 pg (27.0-31.0); Mean Corpuscular Volume 99.2 fL (78.0-98.0); Mean Platelet Volume 8.7 fL (7.4-10.4); Platelet Count 170 10x3/uL (130-400); RBC Distribution Width 12.8 % (11.5-14.5); Red Blood Cell (RBC) Count 3.65 mill/uL (4.20-5.40)
[2024-04-13 05:48] LABS: Troponin I Less than 0.010 ng/mL (< 0.028)
[2024-04-13 07:25] LABS: ALT (SGPT) 21 U/L (8-55); AST (SGOT) 25 U/L (5-34); Albumin 3.8 g/dL (3.4-4.8); Alkaline Phosphatase 123 U/L (40-110); Anion Gap 19 mmol/L (10-20); BUN (Urea Nitrogen) 11 mg/dL (9.8-20.1); Bilirubin, Total 0.5 mg/dL (0.2-1.2); Calc. Creatinine Clearance 0 mL/min (70-130); Calcium 9.5 mg/dL (7.8-10.44); Carbon Dioxide 15 mmol/L (23-31); Chloride 106 mmol/L (98-107); Estimated GFR 74; Globulin 2.7 g/dL (2.4-3.5); Glucose 135 mg/dL (80-115); Potassium 3.9 mmol/L (3.5-5.1); Protein, Total 6.5 g/dL (5.8-8.1); Sodium 136 mmol/L (136-145)
== END 2024-04-13 07:18 | disposition home or self-care (01) ==
LOC: ERS 03:13
DX: J44.1 Chronic obstructive pulmonary disease with (acute) exacerbation (principal); I11.0 Hypertensive heart disease with heart failure; I50.9 Heart failure, unspecified; Z87.891 Personal history of nicotine dependence; Z79.82 Long term (current) use of aspirin; Z79.51 Long term (current) use of inhaled steroids; Z79.899 Other long term (current) drug therapy
CPT/HCPCS: 36415; 71045; 80053; 83880; 84484; 85025; 87428; 93005; J7620

== ENCOUNTER 2024-04-30 20:37 | Emergency (ER) | payer OTHER ==
[~2024-04-30 20:37] MED LIST: Iopamidol-370 76% 500 ML MDV (1 ML CHARGE) ONE
[2024-04-30 21:25] LABS: #Basophils 0.04 10x3/uL (0.0-0.2); %Basophils 0.6 % (0.0-1.0); %Eosinophils 0.8 % (0.0-10.0); %Lymphocytes 27.6 % (21.0-51.0); %Neutrophils 63.5 % (42.0-75.0); Hematocrit 39.4 % (36.0-47.0); Hemoglobin 13.3 g/dL (12.0-16.0); Mean Corpuscular HGB CONC 33.8 g/dL (32.0-36.0); Mean Corpuscular Hemoglobin 33.7 pg (27.0-31.0); Mean Corpuscular Volume 99.7 fL (78.0-98.0); Mean Platelet Volume 9.1 fL (7.4-10.4); Platelet Count 184 10x3/uL (130-400); RBC Distribution Width 12.6 % (11.5-14.5); Red Blood Cell (RBC) Count 3.95 mill/uL (4.20-5.40)
[2024-04-30 21:40] LABS: ALT (SGPT) 19 U/L (8-55); AST (SGOT) 20 U/L (5-34); Alkaline Phosphatase 96 U/L (40-110); Anion Gap 15 mmol/L (10-20); BUN (Urea Nitrogen) 12 mg/dL (9.8-20.1); Bilirubin, Total 0.6 mg/dL (0.2-1.2); Calc. Creatinine Clearance 0 mL/min (70-130); Calcium 9.5 mg/dL (7.8-10.44); Carbon Dioxide 20 mmol/L (23-31); Chloride 100 mmol/L (98-107); Estimated GFR 58; Globulin 2.7 g/dL (2.4-3.5); Glucose 108 mg/dL (80-115); Lipase 10 U/L (8-78); Potassium 3.9 mmol/L (3.5-5.1); Protein, Total 6.7 g/dL (5.8-8.1); Sodium 131 mmol/L (136-145)
[2024-04-30] MEDS ORDERED: Promethazine HCl 25 MG/ML VIAL ONE (21:41)
[2024-04-30 21:45] LABS: Troponin I 0.013 ng/mL (< 0.028)
[2024-04-30] MEDS ORDERED: Ondansetron PF 4 MG/2 ML Vial ONE (23:59)
[2024-05-01 01:15] LABS: Bacteria/HPF None Seen HPF (None Seen); Bilirubin Negative (Negative); Blood, Urine Negative (Negative); CAUTI Indications for Culture Dysuria,urgency,freq; Clarity Clear (Clear); Glucose, Urine (Dipstick) Normal (Negative); Ketone, Urine Negative (Negative); Leukocyte 250 Leu/uL (Negative); Nitrite Negative (Negative); Protein, Urine (Dipstick) Negative (Neg-Trace); Urobilinogen Normal mg/dL (Less than 2)
[2024-05-01] MEDS ORDERED: Pantoprazole 40 MG VIAL ONE (01:18)
[2024-05-01 01:20] LABS: Urine Culture Reflex No No
[2024-05-01] MEDS ORDERED: Famotidine/PF 20 mg/2ml Vial ONE (01:20)
[2024-05-01 01:41] LABS: Specific Gravity, Urine Greater than 1.060 (1.002-1.036)
[2024-05-01] MEDS ORDERED: Haloperidol Lactate 5 MG/ML VIAL ONE (04:01)
[2024-05-01] MEDS ORDERED: Ketorolac Tromethamine 30 MG (1 mL) VIAL ONE (04:02)
[2024-05-01 04:26] LABS: Troponin I Less than 0.010 ng/mL (< 0.028)
== END 2024-05-01 05:23 | disposition home or self-care (01) ==
LOC: ERS 20:37
DX: K76.89 Other specified diseases of liver (principal); R10.13 Epigastric pain; R31.29 Other microscopic hematuria; I11.0 Hypertensive heart disease with heart failure; I50.9 Heart failure, unspecified; J44.9 Chronic obstructive pulmonary disease, unspecified; Z87.891 Personal history of nicotine dependence
CPT/HCPCS: 71045; 74177; 80053; 81001; 83690; 84484; 85025; 93005; J1885; J2405; J2470; J2550; J3490; Q9967; 36415; 96361; 96374; 96375; J1630